=== PATIENT | female | born 2005 | race Caucasian/White ===

== ENCOUNTER 2023-07-15 08:00 | Inpatient (IN) | payer OTHER ==
[2023-07-15 08:47] VITALS: BMI 41.9
[2023-07-25] MEDS ORDERED: Rocuronium Bromide 10 MG/ML (10ML VIAL) ONE (07:01)
[2023-07-25] MEDS ORDERED: PROPOFOL 20 ML ONE (07:01)
[2023-07-25] MEDS ORDERED: Bupivacaine 0.25% HCL 30 ML VIAL ONE ×2 (07:02→07:04)
[2023-07-25] MEDS ORDERED: EPINEPHrine 1 MG/ML VIAL ONE (07:02)
[2023-07-25] MEDS ORDERED: Lidocaine 1% MPF 2 ML VIAL ONE (07:02)
[2023-07-25] MEDS ORDERED: Ondansetron PF 4 MG/2 ML Vial ONE (07:02)
[2023-07-25] MEDS ORDERED: Dexamethasone 20 MG/5 ML VIAL ONE (07:02)
[2023-07-25] MEDS ORDERED: Sodium Chloride 0.9% 100 ML ONE (07:03)
[2023-07-25] MEDS ORDERED: CEFAZOLIN 2 GM VIAL ONE (07:03)
[2023-07-25] MEDS ORDERED: Midazolam HCl 2 mg/2 ml Vial ONE (07:27)
[2023-07-25] MEDS ORDERED: Lidocaine 2% 6 ML (Jelly) SYR ONE (07:27)
[2023-07-25] MEDS ORDERED: MINERAL OIL/WHITE PETROLATUM 3.5 GM TUBE ONE (07:28)
[2023-07-25] MEDS ORDERED: fentaNYL PF 100 MCG/2 ML SYRINGE ONE (07:32)
[2023-07-25] MEDS ORDERED: Metoclopramide HCl 10 MG (2 mL) VIAL ONE (07:35)
[2023-07-25] MEDS ORDERED: SUGAMMADEX SODIUM 200 MG/2 ML VIAL ONE (08:41)
[2023-07-25] MEDS ORDERED: Ketorolac Tromethamine 30 MG (1 mL) VIAL ONE (08:41)
[2023-07-25] MEDS ORDERED: fentaNYL 50 mcg/mL 1 mL Vial ONE ×2 (09:32→09:54)
[2023-07-25] MEDS ORDERED: Fentanyl CADD 100 ML IVPB SCH (09:45)
[2023-07-25] MEDS ORDERED: diphenhydrAMINE 25 MG CAP PO PRN (09:45)
[2023-07-25] MEDS ORDERED: diphenhydrAMINE 50 MG/ML VIAL IM/IV PRN (09:45)
[2023-07-25] MEDS ORDERED: Ondansetron PF 4 MG/2 ML Vial IVP PRN ×2 (09:45→11:47)
[2023-07-25] MEDS ORDERED: Promethazine HCl 25 MG/ML VIAL IM PRN ×2 (09:45→11:47)
[2023-07-25] MEDS ORDERED: Naloxone HCl 0.4 mg/ml Vial IV PRN (09:45)
[2023-07-25] MEDS ORDERED: Dextrose 5% in Water 1,000 ML IV PRN (11:47)
[2023-07-25] MEDS ORDERED: Ketorolac Tromethamine 30 MG (1 mL) VIAL IVP PRN (11:47)
[2023-07-25] MEDS ORDERED: Dextrose 50% Abboject 50 ML SYRINGE SLOW IVP PRN (11:47)
[2023-07-25] MEDS ORDERED: Ipratropium/Albuterol 3 ML NEB NEB PRN (11:47)
[2023-07-25] MEDS ORDERED: Glucagon 1 MG/ML KIT IM PRN (11:47)
[2023-07-25] MEDS ORDERED: Hydrocodone-Acetamin 15 ML UDCUP PO PRN (11:47)
[2023-07-25] MEDS ORDERED: diphenhydrAMINE 50 MG/ML VIAL IVP PRN (11:47)
[2023-07-25] MEDS ORDERED: hydrALAZINE 20 MG/ML VIAL SLOW IVP PRN (11:47)
[2023-07-25] MEDS: D5 1/2 NS w/20 mEq KCL 1,000 ML IV SCH (12:34)
[2023-07-25] MEDS: Acetaminophen 325 MG (10.15 ML) UDCUP PO SCH (12:34)
[2023-07-25] MEDS: FLU VACC QS2023-24(6MOS UP)/PF 60 MCG/0.5 ML SYRINGE IM ONE (12:40)
[2023-07-25] MEDS: Ketorolac Tromethamine 30 MG (1 mL) VIAL IVP SCH (17:41)
[2023-07-25] MEDS ORDERED: [UNRECOGNIZED DRUG - OTHER] PO SCH (21:00)
[2023-07-25] MEDS ORDERED: ETHINYL ESTRADIOL PO SCH ×2 (21:00)
[2023-07-25] MEDS ORDERED: DROSPIRENONE PO SCH ×2 (21:00)
[2023-07-26 04:26] LABS: #Eosinphils 0.1 thou/uL (0.0-0.7); #Monocytes 0.9 thou/uL (0.11-0.59); #Neutrophils 5.2 thou/uL (1.40-6.50); %Basophils 0.1 % (0.0-1.0); %Eosinophils 1.4 % (0.0-10.0); %Lymphocytes 32.3 % (28.0-48.0); %Monocytes 9.8 % (0.0-4.0); Hematocrit 34.4 % (36.0-47.0); Hemoglobin 11.3 g/dL (12.0-16.0); Mean Corpuscular HGB CONC 32.8 g/dL (32.0-36.0); Mean Corpuscular Volume 82.3 fl (78.0-98.0); Mean Platelet Volume 9.1 fL (7.4-10.4); Platelet Count 286 10x3/uL (130-400); RBC Distribution Width 12.6 % (11.5-14.5); Red Blood Cell (RBC) Count 4.18 mill/uL (4.00-5.20); White Blood Cell (WBC) Count 9.2 10x3/uL (4.8-10.8)
[2023-07-26 04:53] LABS: Anion Gap 12 mmol/L (10-20); BUN (Urea Nitrogen) 5 mg/dL (8.4-21.0); Calc. Creatinine Clearance 236 mL/min (70-130); Calcium 8.4 mg/dL (7.8-10.44); Carbon Dioxide 22 mmol/L (22-29); Chloride 106 mmol/L (98-107); Estimated GFR 130; Glucose 108 mg/dL (70-105); Potassium 3.7 mmol/L (3.5-5.1); Sodium 136 mmol/L (136-145)
[2023-07-26 07:36] VITALS: TEMP 98.2
[2023-07-26] MEDS: Pantoprazole 40 MG VIAL IVP SCH (09:19)
[2023-07-26] MEDS: Enoxaparin 40 MG (0.4 mL) SYRINGE SC SCH (09:19)
[2023-07-26 11:52] VITALS: BP 131/83
== END 2023-07-26 12:15 | disposition home or self-care (01) | DRG 621 ==
LOC: INTOOBSV 07-25 06:13 → SURG A 07-25 06:13 → OBSVTOIN 07-25 09:15 → SJJU 07-25 11:34
PROVIDERS: ADMIT Surgery; ATTEND Surgery
PROC: 0DB64Z3 Excision of Stomach, Percutaneous Endoscopic Approach, Vertical (ICD-10-PCS; principal; 2023-07-25)
PROC: 8E0W4CZ Robotic Assisted Procedure of Trunk Region, Percutaneous Endoscopic Approach (ICD-10-PCS; 2023-07-25)
DX: E66.01 Morbid (severe) obesity due to excess calories (principal); F32.A Depression, unspecified; G43.909 Migraine, unspecified, not intractable, without status migrainosus; Z79.899 Other long term (current) drug therapy; K44.9 Diaphragmatic hernia without obstruction or gangrene; Z68.54 Body mass index [BMI] pediatric, 95th percentile for age to less than 120% of the 95th percentile for age
CPT/HCPCS: 36415; 80048; 85025; 88307; C9113; J0171; J0665; J1100; J1650; J1885; J2250; J2405; J2704; J2765; J3010; J3480; J3490

== ENCOUNTER 2023-07-15 08:13 | Outpatient (CLI) | payer OTHER ==
[2023-07-15 09:29] LABS: #Basophils 0.1 10x3/uL (0.0-0.2); #Eosinphils 0.7 10x3/uL (0.0-0.5); #Monocytes 0.5 10x3/uL (0.0-1.1); #Neutrophils 3.5 10x3/uL (1.5-8.4); %Basophils 0.7 % (0.0-2.0); %Lymphocytes 42.4 % (18.0-47.0); %Neutrophils 42.5 % (40.0-75.0); Hematocrit 40.5 % (34.9-44.5); Hemoglobin 13.1 g/dL (12.0-15.5); Mean Corpuscular HGB CONC 32.3 g/dL (32.0-36.0); Mean Corpuscular Hemoglobin 26.3 pg (27.0-33.0); Mean Corpuscular Volume 81.2 fl (81.6-98.3); Mean Platelet Volume 9.1 fl (7.4-10.4); Platelet Count 360 10x3/uL (150-450); RBC Distribution Width 12.8 % (11.5-14.5); Red Blood Cell (RBC) Count 4.99 10x6/uL (3.90-5.03); White Blood Cell (WBC) Count 8.3 10x3/uL (3.5-10.5)
[2023-07-15 09:47] LABS: BHCG - Serum Negative (NEGATIVE); Pregs Control Background? CLEAR/WHITE (CLR/WHITE); Pregs Control Bar Appear? YES (CONTROL BAR)
[2023-07-15 09:56] LABS: ALT (SGPT) 15 U/L (8-55); AST (SGOT) 15 U/L (5-30); Alkaline Phosphatase 89 U/L (40-100); Anion Gap 13 mmol/L (10-20); BUN (Urea Nitrogen) 10 mg/dL (8.4-21.0); Bilirubin, Total 0.3 mg/dL (0.2-1.2); Calc. Creatinine Clearance 0 mL/min (70-130); Calcium 9.2 mg/dL (7.8-10.44); Carbon Dioxide 25 mmol/L (22-29); Chloride 106 mmol/L (98-107); Estimated GFR 129; Globulin 2.9 g/dL (2.4-3.5); Glucose 91 mg/dL (70-105); Potassium 3.7 mmol/L (3.5-5.1); Protein, Total 6.9 g/dL (6.0-8.3); Sodium 140 mmol/L (136-145)
[2023-07-15 13:30] LABS: Hemoglobin A1c 5.2 % (4.0-6.0)
== END 2023-07-15 08:14 | disposition home or self-care (01) ==
LOC: LABBT 08:13
PROVIDERS: ATTEND Surgery
DX: Z01.812 Encounter for preprocedural laboratory examination (principal); E66.01 Morbid (severe) obesity due to excess calories
CPT/HCPCS: 80053; 83036; 84703; 85025